=== PATIENT | female | born 1945 | race Caucasian/White ===

== ENCOUNTER 2023-03-23 19:20 | Inpatient (IN) | payer MEDICARE ==
[2023-03-23] MEDS: Ipratropium/Albuterol 3 ML NEB IPPB SCH (22:24)
[2023-03-24 05:13] LABS: #Basophils 0.1 thou/uL (0.0-0.2); #Eosinphils 0.2 thou/uL (0.0-0.7); #Lymphocytes 2.2 thou/uL (1.20-3.40); #Monocytes 1.2 thou/uL (0.11-0.59); #Neutrophils 5.2 thou/uL (1.40-6.50); %Basophils 1.3 % (0.0-1.0); %Eosinophils 1.9 % (0.0-10.0); %Monocytes 13.2 % (0.0-10.0); %Neutrophils 58.6 % (42.0-75.0); Hematocrit 42.9 % (36.0-47.0); Hemoglobin 14.1 g/dL (12.0-16.0); Mean Corpuscular HGB CONC 32.9 g/dL (32.0-36.0); Mean Corpuscular Hemoglobin 29.5 pg (27.0-31.0); Mean Corpuscular Volume 89.6 fl (78.0-98.0); Mean Platelet Volume 11.6 fL (7.4-10.4); Platelet Count 175 10x3/uL (130-400); RBC Distribution Width 12.1 % (11.5-14.5); Red Blood Cell (RBC) Count 4.79 mill/uL (4.20-5.40); White Blood Cell (WBC) Count 8.8 10x3/uL (4.8-10.8)
[2023-03-24 05:28] LABS: Anion Gap 11 mmol/L (10-20); BUN (Urea Nitrogen) 23 mg/dL (9.8-20.1); Calc. Creatinine Clearance 68 mL/min (70-130); Calcium 9.1 mg/dL (7.8-10.44); Carbon Dioxide 30 mmol/L (23-31); Chloride 103 mmol/L (98-107); Estimated GFR 90; Glucose 100 mg/dL (83-110); Potassium 4.2 mmol/L (3.5-5.1); Sodium 140 mmol/L (136-145)
[2023-03-24] MEDS: Amoxicillin/Potassium Clav 875 MG TAB PO SCH (08:34)
[2023-03-24] MEDS: Amlodipine 5 MG TAB PO SCH (08:34)
[2023-03-24] MEDS: Enoxaparin 40 MG (0.4 mL) SYRINGE SC SCH (08:35)
[2023-03-24] MEDS: Doxycycline 100 MG CAP PO SCH (08:35)
[2023-03-24] MEDS: Famotidine 20 MG TAB PO SCH (08:35)
[2023-03-24] MEDS: Budesonide 0.5 MG/2 ML NEB INH SCH (08:35)
[2023-03-24] MEDS: Losartan 50 MG TAB PO SCH (08:35)
[2023-03-24 16:17] LABS: ALT (SGPT) 239 U/L (8-55); AST (SGOT) 108 U/L (5-34); Albumin 3.5 g/dL (3.4-4.8); Alkaline Phosphatase 54 U/L (40-110); Bilirubin, Direct 0.2 mg/dL (0.1-0.3); Bilirubin, Total 0.4 mg/dL (0.2-1.2); Protein, Total 5.5 g/dL (5.8-8.1)
[2023-03-24] MEDS ORDERED: Mag-Al Plus 1200/1200/120 MG (30 mL) UDCUP PO PRN (16:27)
[2023-03-25] MEDS: Benzonatate 100 MG CAP PO PRN (10:21)
[2023-03-25] MEDS: ALPRAZolam 0.25 MG TAB PO PRN (23:54)
[2023-03-28] MEDS ORDERED: Ipratropium/Albuterol 3 ML NEB IPPB PRN (20:33)
[2023-03-29] MEDS: Ondansetron ODT 4 MG TAB PO PRN (09:51)
[2023-03-29] MEDS: Saccharomyces boulardii 250 MG CAP PO SCH (09:59)
[2023-03-30 05:50] LABS: ALT (SGPT) 93 U/L (8-55); AST (SGOT) 29 U/L (5-34); Albumin 3.2 g/dL (3.4-4.8); Alkaline Phosphatase 62 U/L (40-110); Anion Gap 11 mmol/L (10-20); BUN (Urea Nitrogen) 10 mg/dL (9.8-20.1); Bilirubin, Total 0.5 mg/dL (0.2-1.2); Calc. Creatinine Clearance 68 mL/min (70-130); Calcium 8.9 mg/dL (7.8-10.44); Carbon Dioxide 29 mmol/L (23-31); Chloride 105 mmol/L (98-107); Estimated GFR 89; Globulin 2.4 g/dL (2.4-3.5); Glucose 96 mg/dL (83-110); Protein, Total 5.6 g/dL (5.8-8.1); Sodium 141 mmol/L (136-145)
[2023-03-30] MEDS: Saccharomyces boulardii 250 MG CAP PO SCH (08:12)
[2023-03-31 05:15] LABS: Hemoglobin 11.7 g/dL (12.0-16.0); Platelet Count 164 10x3/uL (130-400)
[2023-04-01 10:56] VITALS: BMI 24.1
[2023-04-04 05:41] LABS: Hematocrit 37.6 % (36.0-47.0); Hemoglobin 12.3 g/dL (12.0-16.0); Mean Corpuscular HGB CONC 32.7 g/dL (32.0-36.0); Mean Corpuscular Hemoglobin 29.3 pg (27.0-31.0); Mean Corpuscular Volume 89.5 fl (78.0-98.0); Platelet Count 160 10x3/uL (130-400); RBC Distribution Width 12.1 % (11.5-14.5); White Blood Cell (WBC) Count 5.4 10x3/uL (4.8-10.8)
[2023-04-04 05:56] LABS: ALT (SGPT) 44 U/L (8-55); AST (SGOT) 20 U/L (5-34); Albumin 3.4 g/dL (3.4-4.8); Alkaline Phosphatase 63 U/L (40-110); Anion Gap 14 mmol/L (10-20); BUN (Urea Nitrogen) 10 mg/dL (9.8-20.1); Bilirubin, Total 0.3 mg/dL (0.2-1.2); Calc. Creatinine Clearance 62 mL/min (70-130); Calcium 9.1 mg/dL (7.8-10.44); Carbon Dioxide 27 mmol/L (23-31); Chloride 102 mmol/L (98-107); Estimated GFR 84; Globulin 2.6 g/dL (2.4-3.5); Glucose 88 mg/dL (83-110); Potassium 4.2 mmol/L (3.5-5.1); Sodium 139 mmol/L (136-145)
[2023-04-04] MEDS: Loratadine 10 MG TAB PO SCH (09:47)
[2023-04-04 16:56] VITALS: BP 138/54; TEMP 97.8
[2023-04-05] MEDS ORDERED: Loratadine 10 MG TAB PO SCH (09:00)
== END 2023-04-04 16:45 | disposition home or self-care (01) | DRG 947 ==
LOC: MADMS 19:20
PROVIDERS: ADMIT Family Medicine; ATTEND Family Medicine
DX: R53.81 Other malaise (principal); J18.9 Pneumonia, unspecified organism; J96.01 Acute respiratory failure with hypoxia; I10 Essential (primary) hypertension; R74.01 Elevation of levels of liver transaminase levels; Z79.899 Other long term (current) drug therapy; Z88.8 Allergy status to other drugs, medicaments and biological substances; Z86.711 Personal history of pulmonary embolism; Z87.891 Personal history of nicotine dependence; Z99.81 Dependence on supplemental oxygen
CPT/HCPCS: 36415; 80048; 80053; 80076; 82565; 85014; 85018; 85025; 85027; 85049; 94640; J1650; J7620; J7626; Q0162